=== PATIENT | male | born 1945 | race Caucasian/White ===

== ENCOUNTER 2025-07-13 12:02 | Outpatient (CLI) | payer OTHER, SELFPAY | END 2025-07-13 12:03 | disposition home or self-care (01) | LOC: RAD 12:05 | PROVIDERS: PCP Chiropractor; Visit Provider Chiropractor | DX: I48.91 Unspecified atrial fibrillation (principal); I51.7 Cardiomegaly; I35.1 Nonrheumatic aortic (valve) insufficiency; I07.1 Rheumatic tricuspid insufficiency; I34.0 Nonrheumatic mitral (valve) insufficiency | CPT/HCPCS: 93306 ==